=== PATIENT | female | born 1970 | race Caucasian/White ===

== ENCOUNTER 2022-01-23 08:17 | Day surgery (SDC) | payer MEDICAID ==
[~2022-01-23 08:17] MED LIST: Midazolam 1 MG/ML 2 ML SDV ONE; Propofol 200 MG/20 ML SDV ONE; fentaNYL 100 MCG/2 ML SDV ONE
[2022-01-23] MEDS ORDERED: Sodium Chloride 0.9% 1,000 ML IV SCH (08:30)
== END 2022-01-23 11:25 | disposition home or self-care (01) ==
LOC: JP.SDS 08:17
PROVIDERS: ATTEND Surgery
DX: Z12.11 Encounter for screening for malignant neoplasm of colon (principal); I10 Essential (primary) hypertension
CPT/HCPCS: J2250; J2704; J3010; J7030